=== PATIENT | male | born 1990 | race Caucasian/White ===

== ENCOUNTER 2024-08-12 11:20 | Outpatient (CLI) | payer MEDICAID | END 2024-08-12 23:59 | disposition home or self-care (01) | LOC: MRI02 11:20 | PROVIDERS: ATTEND Anesthesiology | DX: M51.16 Intervertebral disc disorders with radiculopathy, lumbar region (principal) | CPT/HCPCS: 72148 ==

== ENCOUNTER 2024-09-03 14:22 | Outpatient (CLI) | payer MEDICAID, OTHER ==
[~2024-09-03 14:22] MED LIST: LIDOcaine 1% 30ml preserv. free vial ONE
[2024-09-03 15:31] LABS: BASOPHILS # (AUTO) 0.1 X10'3 (0-0.2); BASOPHILS % (AUTO) 0.8 % (0-1); EOSINOPHILS # (AUTO) 0.2 X10'3 (0-0.9); EOSINOPHILS % (AUTO) 2.4 % (0-6); LYMPHOCYTES # (AUTO) 3.3 X10'3 (1.1-4.8); LYMPHOCYTES % (AUTO) 38.8 % (21-51); MEAN CORPUSCULAR HEMOGLOBIN 27.3 PG (27.0-31.0); MEAN CORPUSCULAR HGB CONC 33.4 g/dL (33.0-36.5); MEAN CORPUSCULAR VOLUME 81.7 FL (78-98); MEAN PLATELET VOLUME 7.3 FL (7.4-10.4); MONOCYTES # (AUTO) 0.9 X10'3 (0-0.9); MONOCYTES % (AUTO) 10.4 % (2-12); NEUTROPHILS % (AUTO) 47.6 % (42-75); PRE OP HEMATOCRIT 43.8 % (42.0-52.0); PRE OP HEMOGLOBIN 14.7 g/dL (14.0-17.9); PRE OP PLATELET COUNT 274 X10'3 (140-440); PRE OP WHITE BLOOD COUNT 8.5 10'3 (4.8-10.8); RED BLOOD COUNT 5.36 X10'6 (4.70-6.10); RED CELL DISTRIBUTION WIDTH 13.6 % (11.5-14.5)
[2024-09-03 15:48] LABS: ALBUMIN 3.9 G/DL (3.4-5.0); ALBUMIN/GLOBULIN RATIO 1.1 (1.1-1.5); ALKALINE PHOSPHATASE 54 IU/L (46-116); BLOOD UREA NITROGEN 14 MG/DL (7-18); BUN/CREATININE RATIO 13.1 (10.0-20.0); CALCIUM 9.1 MG/DL (8.5-10.1); CHLORIDE 105 MMOL/L (99-107); CREATININE 1.07 MG/DL (0.60-1.10); PRE OP ALT 20 U/L (30-65); PRE OP ANION GAP 7 (8-16); PRE OP AST 7 U/L (10-37); PRE OP BILIRUB, TOTAL 0.2 MG/DL (0.0-1.0); PRE OP GLUCOSE 94 MG/DL (70-104); PRE OP POTASSIUM 4.1 MMOL/L (3.4-5.1); PRE OP SODIUM 142 MMOL/L (135-145); TOTAL CARBON DIOXIDE 29.6 MMOL/L (24-32); TOTAL PROTEIN 7.3 G/DL (6.4-8.2); eGFR 80 ML/MIN
[2024-09-15] MEDS ORDERED: LIDOcaine 1% 30ml preserv. free vial ONE (11:36)
== END 2024-09-03 23:59 | disposition home or self-care (01) ==
LOC: LAB 14:22 → EDSTATUS 09-08 15:15
PROVIDERS: ATTEND Surgery
DX: Z01.812 Encounter for preprocedural laboratory examination (principal); K40.90 Unilateral inguinal hernia, without obstruction or gangrene, not specified as recurrent
CPT/HCPCS: 36415; 80053; 85025; J2003; J7120

== ENCOUNTER 2024-10-06 09:16 | Emergency (ER) | payer MEDICAID, OTHER ==
[~2024-10-06] VITALS: Ht 180.3 cm; Wt 103.2 kg
[2024-10-06 09:18] VITALS: BP 141/101; PULSE 124; RESP 18; TEMP 98.7; O2SAT 97
[2024-10-06 10:59] LABS: BASOPHILS # (AUTO) 0.1 X10'3 (0-0.2); BASOPHILS % (AUTO) 0.5 % (0-1); EOSINOPHILS # (AUTO) 0.3 X10'3 (0-0.9); EOSINOPHILS % (AUTO) 1.9 % (0-6); HEMATOCRIT 45.8 % (42.0-52.0); HEMOGLOBIN 15.2 g/dl (14.0-17.9); LYMPHOCYTES # (AUTO) 3.4 X10'3 (1.1-4.8); LYMPHOCYTES % (AUTO) 21.1 % (21-51); MEAN CORPUSCULAR HEMOGLOBIN 27.3 PG (27.0-31.0); MEAN CORPUSCULAR HGB CONC 33.1 g/dL (33.0-36.5); MEAN CORPUSCULAR VOLUME 82.4 FL (78-98); MEAN PLATELET VOLUME 7.4 FL (7.4-10.4); MONOCYTES # (AUTO) 1.8 X10'3 (0-0.9); MONOCYTES % (AUTO) 10.9 % (2-12); NEUTROPHILS # (AUTO) 10.6 X10'3 (1.8-7.7); NEUTROPHILS % (AUTO) 65.6 % (42-75); PLATELET COUNT 317 X10'3 (140-440); RED BLOOD COUNT 5.55 X10'6 (4.70-6.10); RED CELL DISTRIBUTION WIDTH 13.4 % (11.5-14.5); WHITE BLOOD COUNT 16.2 X10'3 (4.5-11.0)
[2024-10-06 11:15] LABS: ALANINE AMINOTRANSFERASE 18 U/L (12-78); ALBUMIN 3.9 G/DL (3.4-5.0); ALBUMIN/GLOBULIN RATIO 0.8 (1.1-1.5); ALKALINE PHOSPHATASE 58 IU/L (46-116); ANION GAP 9 (8-16); ASPARTATE AMINO TRANSFERASE 13 U/L (10-37); BILIRUBIN,TOTAL 0.5 MG/DL (0.1-1.0); BLOOD UREA NITROGEN 9 MG/DL (7-18); BUN/CREATININE RATIO 11.8 (10.0-20.0); CHLORIDE 103 MMOL/L (99-107); CREATININE 0.76 MG/DL (0.60-1.10); GLUCOSE 106 MG/DL (70-104); LIPASE 45 U/L (16-77); SODIUM 139 MMOL/L (135-145); TOTAL CARBON DIOXIDE 26.7 MMOL/L (24-32); TOTAL PROTEIN 8.5 G/DL (6.4-8.2); eCRCL 147 ML/MIN; eGFR > 90 ML/MIN
== END 2024-10-06 12:43 | disposition left against medical advice (07) ==
LOC: ER 09:16
DX: M79.652 Pain in left thigh (principal); Z91.018 Allergy to other foods
CPT/HCPCS: 36415; 80053; 83690; 84145; 85025; 99283

== ENCOUNTER 2025-02-09 06:59 | Day surgery (SDC) | payer MEDICAID ==
[2025-02-03 08:50] LABS: BASOPHILS % (AUTO) 0.6 % (0-1); EOSINOPHILS # (AUTO) 0.4 X10'3 (0-0.9); EOSINOPHILS % (AUTO) 4.8 % (0-6); LYMPHOCYTES # (AUTO) 3.5 X10'3 (1.1-4.8); LYMPHOCYTES % (AUTO) 42.3 % (21-51); MEAN CORPUSCULAR HEMOGLOBIN 26.6 PG (27.0-31.0); MEAN CORPUSCULAR HGB CONC 33.6 g/dL (33.0-36.5); MEAN CORPUSCULAR VOLUME 79.2 FL (78-98); MEAN PLATELET VOLUME 7.1 FL (7.4-10.4); MONOCYTES # (AUTO) 0.8 X10'3 (0-0.9); MONOCYTES % (AUTO) 9.6 % (2-12); NEUTROPHILS # (AUTO) 3.5 X10'3 (1.8-7.7); NEUTROPHILS % (AUTO) 42.7 % (42-75); PRE OP HEMATOCRIT 45.4 % (42.0-52.0); PRE OP HEMOGLOBIN 15.2 g/dL (14.0-17.9); PRE OP PLATELET COUNT 301 X10'3 (140-440); PRE OP WHITE BLOOD COUNT 8.3 10'3 (4.8-10.8); RED BLOOD COUNT 5.73 X10'6 (4.70-6.10); RED CELL DISTRIBUTION WIDTH 13.5 % (11.5-14.5)
[2025-02-03 09:00] LABS: ALBUMIN 3.7 G/DL (3.4-5.0); ALKALINE PHOSPHATASE 59 IU/L (46-116); BLOOD UREA NITROGEN 11 MG/DL (7-18); BUN/CREATININE RATIO 11.6 (10.0-20.0); CALCIUM 8.8 MG/DL (8.5-10.1); CHLORIDE 106 MMOL/L (99-107); CREATININE 0.95 MG/DL (0.60-1.10); PRE OP ALT 22 U/L (30-65); PRE OP ANION GAP 8 (8-16); PRE OP AST 16 U/L (10-37); PRE OP BILIRUB, TOTAL 0.4 MG/DL (0.0-1.0); PRE OP GLUCOSE 103 MG/DL (70-104); PRE OP POTASSIUM 3.9 MMOL/L (3.4-5.1); PRE OP SODIUM 141 MMOL/L (135-145); TOTAL CARBON DIOXIDE 27.4 MMOL/L (24-32); TOTAL PROTEIN 7.4 G/DL (6.4-8.2); eGFR > 90 ML/MIN
[2025-02-09] VITALS (12 sets, daily range): BP systolic 127–142; BP diastolic 79–98; PULSE 60–92; RESP 14–16; TEMP 98.8; O2SAT 95–100
[~2025-02-09] VITALS: Ht 177.8 cm; Wt 116.3 kg
[~2025-02-09 06:59] MED LIST changes: +APIX5TAB3 PO; +LEVO-65 PO; -LIDOcaine 1% 30ml preserv. free vial ONE
[2025-02-09] MEDS: ceFAZolin 2gm/dext,iso 50mL 50 ML IV ONE (07:42)
[2025-02-09] MEDS: ringers solution, lacted 1,000 ML IV SCH (07:42)
[2025-02-09] MEDS: famotidine 20mg tablet PO ONE (07:42)
[2025-02-09] MEDS ORDERED: LIDOcaine 1% 30ml preserv. free vial ONE (08:05)
[2025-02-09] MEDS ORDERED: BUPIVAcaine 2.5mg/ml inj 50ml vial (contains preservative) ONE (08:05)
[2025-02-09] MEDS ORDERED: hydrALAZINE 20mg/ml inj. IV PRN (08:40)
[2025-02-09] MEDS ORDERED: morphine 2 MG/ML inj. syringe IV PRN (08:40)
[2025-02-09] MEDS ORDERED: labetalol 20mg/4ml (5mg/ml) syringe IV PRN (08:40)
[2025-02-09] MEDS ORDERED: morphine 4 MG/ML inj SYRINge IV PRN (08:40)
[2025-02-09] MEDS ORDERED: HYDROmorphone/PF 0.2 MG/ML SYRINGE IV PRN ×2 (08:40)
[2025-02-09] MEDS ORDERED: ondansetron/PF 4mg/2ml inj IV PRN (08:40)
[2025-02-09] MEDS ORDERED: ringers solution, lacted 1,000 ML IV SCH (08:40)
[2025-02-09] MEDS ORDERED: sevoflurane 250ml liquid IH ONE (09:15)
[2025-02-09] MEDS ORDERED: fentaNYL/PF 50MCG/1 ML 2ML syringe ONE (09:19)
[2025-02-09] MEDS ORDERED: midazolam 1 mg/ML 2ml injection ONE (09:19)
--- NOTE | 2025-02-09 09:22 | HISTORY AND PHYSICAL ---
History & Physical Providers to CC CC: TAMIR AKERS MD ~ History of Present Illness Reason for Admit\\Complaint: Left inguinal hernia History of Present Illness Interval history and physical exam Patient was seen in the office six months ago and diagnosed with a left inguinal hernia This is symptomatic He is here today for elective repair He denies any change in his past medical history since he was seen in the office (please see previous history and physical exam for all pertinent details) He is scheduled for robotic assisted, laparoscopic left, possible right inguinal hernia repair with mesh Allergies: Coded Allergies: corn (Verified Allergy, Unknown, 10/06/24) wheat (Verified Allergy, Unknown, 10/06/24) Uncoded Allergies: "EVERY GRAIN KNOWN TO MAN" (Adverse Reaction, Severe, PAINFUL GI, INCREASED JOINT INFLAMMATION, 02/08/25) Home Medications Home Medications Active Reported Eliquis (Apixaban) 5 Mg Tablet 1 Tab PO BID Levofloxacin 500 Mg Tablet 1 Tab PO DAILY ROS ROS Reviewed and negative with the exception of symptomatic left inguinal hernia Exam Vitals: Vital Signs Date Time Temp Pulse Resp B/P (MAP) Pulse Ox O2 Delivery O2 Flow Rate FiO2 02/09/25 08:23 16 95 Room Air 0.0 02/09/25 08:21 77 02/09/25 08:20 98.8 134/79 (97) General: 34-year-old male in no acute distress Chest: Lungs clear to auscultation bilaterally Cardiovascular: Regular rate and rhythm without murmurs Abdomen: Soft and nondistended Left side marked with ink marker Problems: (1) Left inguinal hernia Assessment & Plan: The risks, benefits, and alternatives to a robotic assisted, laparoscopic left, possible right inguinal hernia repair with mesh were discussed with the patient and his significant other. Risks include, but are not limited to, bleeding, infection, injury to intra-abdominal structures, hernia recurrence and chronic postoperative pain. Patient verbalized understanding and wishes to proceed with surgery. We will do so today as TAMIR Aguila MD Feb 09, 2025 09:22
[2025-02-09] MEDS ORDERED: dexamethasone sod phosphate 4mg/ml inj. ONE (09:33)
[2025-02-09] MEDS ORDERED: rocuronium 10mg/ml inj IV ONE (09:33)
[2025-02-09] MEDS ORDERED: propofol inj 20 ML IV ONE (09:33)
[2025-02-09] MEDS: BUPIVAcaine/PF 2.5 mg/ml (0.25%) 30ml vial IJ ONE (09:58)
[2025-02-09] MEDS ORDERED: neostigmine methylsulfate 1 MG/ML 10ml vial ONE (10:40)
[2025-02-09] MEDS ORDERED: glycopyrrolate 0.2mg/ml inj ONE (10:40)
[2025-02-09] MEDS ORDERED: ondansetron/PF 4mg/2ml inj ONE (10:40)
[2025-02-09] MEDS: ketorolac trometh 30MG/ML vial 30 MG/ML VIAL IV ONE (11:09)
[2025-02-09] MEDS: acetaminophen 1,000mg/100ml IV 100 ML IV PRN (11:10)
--- NOTE | 2025-02-09 11:18 | OPERATIVE REPORT ---
Operative Report Providers to CC: KOBI AKERS MD ~ Date of Procedure: Feb 09, 2025 Pre-Operative Diagnosis: Left inguinal hernia Post-Operative Diagnosis SAME as PRE-Op Procedure Performed Robotic assisted, laparoscopic left inguinal hernia repair with mesh Surgeon: Kobi Akers MD FACS Tub Puller None Anesthesiologist: Bib Kerr Type of Anesthesia: General Findings: Very large indirect left inguinal hernia Wound class I Complications None Prosthetics\Implants used: Extra-large left Dextile mesh Estimated Blood Loss: Minimal Specimen Removed: None Description of Procedure: Patient was brought to the operating room and identified by the nursing staff and the attending physician. Patient was placed supine and general anesthesia was induced. Patient's abdomen was prepped and draped in standard sterile fashion. Preoperative antibiotics were given. Supraumbilical incision was made to allow for standard Arias entry technique. Laparoscope was inserted after insufflation. Bilateral, 8.5 mm robotic trochars were placed under laparoscopic guidance following administration of local anesthetic. The [email or web address] robotic arm was docked to the patient and instruments placed intra-abdominally under laparoscopic visualization. The right hemipelvis was examined and showed no evidence of right inguinal hernia. An indirect inguinal hernia was identified on the left side. Hernia sac was very large in size with a large amount of omentum that was reducible. A rent was created in the peritoneum from the median umbilical fold and carried out laterally towards the anterior superior iliac spine. Preperitoneal flap was created and carried down to the symphysis pubis. The retropubic space of Retzius was developed and the bladder swept medially. Dissection was carried out laterally until an in direct hernia sac was identified. This was very, very large in size, extending deep into the left hemiscrotum. Hernia sac was completely dissected away from the cord structures and reduced. The critical view of the myopectineal orifice was achieved. Dissection was carried out laterally to allow space for mesh deployment. An extra-large Dextile mesh and suture was passed intra-abdominally. Mesh was laid in the preperitoneal space covering both indirect, direct, and potential femoral and obturator hernias. Mesh laid without wrinkles or folds. 3 tacking sutures using 0 Ethibond were used to fix the mesh at the symphysis pubis, r ectus abdominis, and just anterior to the anterior superior iliac spine. The peritoneal rent was then closed with running, 2/0, absorbable locking suture. Jber were retrieved. Abdomen was deflated and secondary trochars removed. Fascia at the umbilical port site was closed with 0 Vicryl sutures. Skin incisions were closed with 4-0 Monocryl sutures in a subcuticular fashion. Sterile dressings were applied. Patient was awakened and taken to the postanesthesia care unit in stable condition. Counts repoted as correct: Yes KOBI AKERS MD Feb 09, 2025 11:18
[2025-02-09] MEDS: HYDROcodone/acetaminophen 5mg/325mg tablet PO PRN (11:29)
== END 2025-02-09 12:20 | disposition home or self-care (01) ==
LOC: PAS 06:59
PROVIDERS: ATTEND Surgery
DX: K40.90 Unilateral inguinal hernia, without obstruction or gangrene, not specified as recurrent (principal); Z79.899 Other long term (current) drug therapy; F41.9 Anxiety disorder, unspecified; F32.A Depression, unspecified; Z98.52 Vasectomy status; Z98.890 Other specified postprocedural states; F43.10 Post-traumatic stress disorder, unspecified; Z88.8 Allergy status to other drugs, medicaments and biological substances
CPT/HCPCS: 36415; 49650; 80053; 82948; 85025; C1781; J0131; J1100; J1885; J2003; J2250; J2405; J2704; J2710; J3010; J3490; J7030; J7120; S2900; Z7506; Z7508; Z7512; A4215; A4618